=== PATIENT | male | born 1960 | race Caucasian/White ===

== ENCOUNTER 2024-03-18 07:40 | Inpatient (IN) ==
--- NOTE | 2024-03-18 08:09 | Emergency Department Note ---
History of Present Illness General Chief Complaint: Chest Pain Stated Complaint: abd and chest pain Time Seen by Provider: 03/18/24 07:58 History of Present Illness Provider Complaint: abdominal pain Onset (ago): 1 day(s) Pain Consistency: constant Location: diffuse Radiation: chest Severity: severe Maximum Pain Intensity: 9 Current Pain Intensity: 9 Quality: + stabbing and + sharp Relieved By: + nothing Exacerbated By: + nothing Context: no foreign travel, no possible food poisoning, no sick contacts, no recent antibiotic use, no recent surgery/procedure or no recent injury Associated Symptoms: + nausea, + vomiting and + chest pain; no diarrhea, no fever, no chills, no constipation, no dysuria, no hematemesis, no hematochezia, no melena, no hematuria, no syncope, no headache, no neck pain and no back pain Home Medications Medication Instructions Recorded Confirmed Type allopurinol 300 mg tablet 300 mg PO DAILY 09/26/20 03/18/24 History aspirin 81 mg tablet,delayed 81 mg PO DAILY 09/26/20 03/18/24 History release (Adult Low Dose Aspirin) cholecalciferol (vitamin D3) 50 50 mcg PO DAILY 09/26/20 03/18/24 History mcg (2,000 unit) capsule indomethacin 50 mg capsule 50 mg PO .COMPLEX PRN Other 09/26/20 03/18/24 History lisinopril 10 mg tablet 10 mg PO BID 09/26/20 03/18/24 History mecobalamin (vitamin B12) 1,000 1,000 mcg PO DAILY 09/26/20 03/18/24 History mcg chewable tablet metoprolol tartrate 25 mg tablet 25 mg PO BID 09/26/20 03/18/24 History nitroglycerin 0.4 mg sublingual 0.4 mg sublingual Q5M PRN Chest 09/26/20 03/18/24 History tablet Pain omega-3 fatty acids 1,000 mg 1,000 mg PO DAILY 09/26/20 03/18/24 History capsule (Fish Oil Concentrate) omeprazole 20 mg capsule,delayed 20 mg PO BID 09/26/20 03/18/24 History release methotrexate sodium 2.5 mg tablet 17.5 mg PO .weekly 06/17/22 03/18/24 History ezetimibe 10 mg tablet (Zetia) 10 mg PO DAILY #90 tabs 03/15/23 03/18/24 Rx gabapentin 600 mg tablet 600 mg PO .COMPLEX 07/23/23 03/18/24 History rosuvastatin 40 mg tablet (Crestor) 40 mg PO DAILY #90 tabs 08/07/23 03/18/24 Rx clopidogrel 75 mg tablet (Plavix) 75 mg PO DAILY #90 tabs 10/27/23 03/18/24 Rx empagliflozin 10 mg tablet 10 mg PO DAILY 02/04/24 03/18/24 History (Jardiance) folic acid 1 mg tablet 1 mg PO DAILY 03/18/24 03/18/24 History hydrochlorothiazide 25 mg tablet 25 mg PO DAILY 03/18/24 03/18/24 History prednisone 1 mg tablet 4 mg PO DAILY PRN Other 03/18/24 03/18/24 History semaglutide 3 mg tablet (Rybelsus) 3 mg PO DAILY 03/18/24 03/18/24 History Allergies Allergy/AdvReac Type Severity Reaction Status Date / Time No Known Allergies Allergy Verified 02/04/24 15:35 Past Med/Surg History Problem List (Updated 03/18/24 @ 14:07 by Gutierrez Dale MD) Elevated liver transaminase level Diabetes Acute pancreatitis (Acute) Diabetic neuropathy Myocardial infarct Impaired fasting glucose GERD (gastroesophageal reflux disease) Hyperlipidemia Hypertension CAD (coronary artery disease) S/P coronary artery stent placement Gout, chronic Morbid obesity Medical History Heart attack Gout Surgical History History of intravascular stent placement Social History Smoking Status: Never smoker Hx Alcohol Use: Yes Preferred Language: [place] Communication Ability: Effective Visual Impairment: No Limitations Hearing Ability: Normal Beliefs That Will Affect Care: None marital status: Current Living Situation: Spouse current occupational status: employed Feels Safe at Home: Yes Physical Exam 2 Vital Signs: Vital Signs - 24 hr 03/18/24 07:40 03/18/24 07:48 03/18/24 07:52 Temperature 37.0 C Temperature Source Oral Pulse Rate 79 Pulse Rate [Finger ] 77 Pulse Rate from Sp O2 Sensor Pulse Rhythm Regular Pulse Rhythm [Fing er] Regular Pulse Strength Normal Pulse Strength [Fi nger] Normal Respiratory Rate 18 18 Respiratory Effort / Characteristics Non-Labored Non-Labored Respiratory Depth Normal Normal Respiratory Patter n Regular Regular Blood Pressure 143/97 H Blood Pressure [Le ft Arm] 143/97 H Blood Pressure Dor[place]a n 112 Blood Pressure [place] n [Left Arm] 112 Blood Pressure Pos ition Lying Blood Pressure Pos ition [Left Arm] Lying Pulse Oximetry 97 95 Oxygen Delivery Me thod Room Air Room Air Room Air Sepsis Recent Feve r Within 48 Hours No Sepsis New/Unexpla ined Change in Men chilango Status N/A Sepsis Action Take n by Nursing No Action Required 03/18/24 08:00 03/18/24 08:04 03/18/24 08:06 Temperature Temperature Source Pulse Rate 80 78 Pulse Rate [Finger ] Pulse Rate from Sp O2 Sensor 77 Pulse Rhythm Regular Pulse Rhythm [Fing er] Pulse Strength Pulse Strength [Fi nger] Respiratory Rate 18 12 Respiratory Effort / Characteristics Respiratory Depth Respiratory Patter n Blood Pressure 150/93 H Blood Pressure [Le ft Arm] Blood Pressure [place] n 114 Blood Pressure [place] n [Left Arm] Blood Pressure Pos ition Blood Pressure Pos ition [Left Arm] Pulse Oximetry 92 95 Oxygen Delivery Me thod Room Air Sepsis Recent Feve r Within 48 Hours Sepsis New/Unexpla ined Change in Men chilango Status Sepsis Action Take n by Nursing 03/18/24 08:14 03/18/24 09:48 03/18/24 10:00 Temperature Temperature Source Pulse Rate 75 77 Pulse Rate [Finger ] 77 Pulse Rate from Sp O2 Sensor 76 Pulse Rhythm Pulse Rhythm [Fing er] Regular Pulse Strength Pulse Strength [Fi nger] Normal Respiratory Rate 16 18 Respiratory Effort / Characteristics Non-Labored Respiratory Depth Normal Respiratory Patter n Regular Blood Pressure Blood Pressure [Le ft Arm] 155/98 H Blood Pressure [place] n Blood Pressure [place] n [Left Arm] 117 Blood Pressure Pos ition Blood Pressure Pos ition [Left Arm] Lying Pulse Oximetry 91 93 Oxygen Delivery Me thod Room Air Sepsis Recent Feve r Within 48 Hours Sepsis New/Unexpla ined Change in Men chilango Status Sepsis Action Take n by Nursing 03/18/24 10:03 03/18/24 10:45 03/18/24 11:00 Temperature Temperature Source Pulse Rate 74 84 Pulse Rate [Finger ] 88 Pulse Rate from Sp O2 Sensor 76 84 Pulse Rhythm Pulse Rhythm [Fing er] Regular Pulse Strength Pulse Strength [Fi nger] Normal Respiratory Rate 16 15 18 Respiratory Effort / Characteristics Non-Labored Respiratory Depth Normal Respiratory Patter n Regular Blood Pressure Blood Pressure [Le ft Arm] 133/89 Blood Pressure [place] n Blood Pressure [place] n [Left Arm] 103 Blood Pressure Pos ition Blood Pressure Pos ition [Left Arm] Lying Pulse Oximetry 91 92 99 Oxygen Delivery Me thod Room Air Sepsis Recent Feve r Within 48 Hours Sepsis New/Unexpla ined Change in Men chilango Status Sepsis Action Take n by Nursing 03/18/24 11:03 03/18/24 11:36 Temperature Temperature Source Pulse Rate 96 H 87 Pulse Rate [Finger ] Pulse Rate from Sp O2 Sensor 93 H 88 Pulse Rhythm Pulse Rhythm [Fing er] Pulse Strength Pulse Strength [Fi nger] Respiratory Rate 17 15 Respiratory Effort / Characteristics Respiratory Depth Respiratory Patter n Blood Pressure Blood Pressure [Le ft Arm] Blood Pressure [place] n Blood Pressure [place] n [Left Arm] Blood Pressure Pos ition Blood Pressure Pos ition [Left Arm] Pulse Oximetry 94 96 Oxygen Delivery Me thod Sepsis Recent Feve r Within 48 Hours Sepsis New/Unexpla ined Change in Men chilango Status Sepsis Action Take n by Nursing Physical Exam: Physical Exam GENERAL: She is oriented to person, place, and time. She appears well-developed and well-nourished. She does not appear distressed. HENT: Exam performed. -Head: Normocephalic and atraumatic. -Right Ear: External ear normal. No mastoid erythema -Left Ear: External ear normal. No mastoid erythema -Mouth/Throat: The oropharynx is clear and moist. No trismus in the jaw. No dental abscesses or uvula swelling. No oropharyngeal exudate or tonsillar abscesses. EYES: Conjunctivae and EOM are normal.Right eye exhibits no discharge. Left eye exhibits no discharge. No scleral icterus. NECK: Normal range of motion. Neck supple. No JVD present. No tracheal deviation and normal range of motion present. CV: Normal rate, regular rhythm, normal heart sounds and intact distal pulses. There is no peripheral edema. Palpable radial pulses bue. PULM/CHEST: Effort normal and breath sounds normal. No respiratory distress. No stridor. She has no wheezes. She has no rales. -Chest Wall: She exhibits no tenderness. ABD: The abdomen is soft. Bowel sounds are normal. She has no distension. No mass is present. There is diffuse tenderness to palpation. There is no rebound, no guarding. MUSC/SKEL: Normal range of motion. There is no peripheral edema, tenderness or deformity. NEURO: Motor and sensation grossly intact. SKIN: Skin is warm and dry. She is not diaphoretic. PSYCH: She has a normal mood and affect. Behavior is normal. Judgment and thought content normal. Course Course 0758: The patient was evaluated in room A10. A complete history and physical exam was performed Cardiac monitoring: An order was placed for continuous cardiac monitoring. The monitor shows a rate of 70 with sinus rhythm interpreted by hi 1115: Vital signs stable. Labs are significant for white blood cell count of 12.22 hemoglobin 16.8. D-dimer of 860. CT of the chest negative for PE. Total bilirubin 1.4 direct bilirubin 0.5 AST 379 ALT 312. Triglycerides 168. Lipase 1082. CT of the abdomen pelvis showed pancreatitis cholelithiasis without cholecystitis. [facility] be [facility] team for pancreatitis Dr. Schwartz made aware. Administered Medications Hydromorphone HCl (Hydromorphone Inj 0.5 Mg/0.5 Ml Syr) 0.5 mg IV Q2H PRN PRN Reason: Moderate Pain (4,5,6) on NRS Stop: 04/01/24 11:40 Last Admin: 03/18/24 12:55 Dose: 0.5 mg Documented By: MARCELO Lactated Ringer's (Lr) 1,000 mls @ 150 mls/hr IV .Q6H40M DELORIS Stop: 03/19/24 15:09 Last Admin: 03/18/24 12:57 Dose: 150 mls/hr Documented By: MARCELO Acetaminophen (Ofirmev) 1,000 mg in 100 mls @ 400 mls/hr IV Q8H PRN PRN Reason: Fever/Mild Pain (Pain 1,2,3) Stop: 03/21/24 11:40 Last Infusion: 03/18/24 12:10 Dose: Infused Documented By: Admin: 03/18/24 11:51 Dose: 400 mls/hr Documented By: MARCELO Discontinued Medications Sodium Chloride (Nss) 1,000 mls @ 999 mls/hr IV .Q1H1M ONE Stop: 03/18/24 09:03 Last Infusion: 03/18/24 09:16 Dose: Infused Documented By: Admin: 03/18/24 08:14 Dose: 999 mls/hr Documented By: MARCELO Sodium Chloride (Nss) 1,000 mls @ 125 mls/hr IV .Q8H DELORIS Stop: 04/17/24 11:29 Last Admin: 03/18/24 11:49 Dose: Not Given Documented By: MARCELO Ioversol (Optiray 320 150ml) 120 ml IV ONCE ONE Stop: 03/18/24 09:38 Last Admin: 03/18/24 09:38 Dose: 120 ml Documented By: RAN Lorazepam (Lorazepam 1 Mg/1 Ml Syr Ed Inj Use) 0.5 mg IV NOW STA Stop: 03/18/24 11:45 Last Admin: 03/18/24 11:48 Dose: 0.5 mg Documented By: MARCELO Metoprolol Tartrate (Metoprolol Tartrate 25 Mg Tab) 25 mg PO NOW ONE Stop: 03/18/24 11:28 Last Admin: 03/18/24 11:43 Dose: Not Given Documented By: MARCELO Morphine Sulfate (Morphine Sulfate 4 Mg/Ml 1 Ml Carp\Vial) 4 mg IV NOW STA Stop: 03/18/24 08:04 Last Admin: 03/18/24 08:18 Dose: 4 mg Documented By: MARCELO Ondansetron HCl (Ondansetron Inj 2 Mg/Ml 2 Ml Vial) 4 mg IV NOW STA Stop: 03/18/24 08:04 Last Admin: 03/18/24 08:16 Dose: 4 mg Documented By: MARCELO Medical Decision Making Laboratory Data Attestation: I reviewed the patient's lab results. 03/18/24 07:58 03/18/24 07:58 Lab Results 03/18/24 Range/Units 07:58 WBC 12.22 H (4.8-10.8) K/ul RBC 5.38 (4.70-6.10) M/uL Hgb 16.8 (14.0-18.0) g/dl Hct 46.9 (42.0-52.0) % MCV 87.2 (80.0-100.0) fL MCH 31.2 (25.0-34.0) pg MCHC 35.8 (32.0-36.0) g/dL RDW Std Deviation 40.6 (36.4-46.3) fL RDW Coeff of Stuart 13.2 (11.5-14.5) % Plt Count 203 (130-400) K/uL MPV 9.2 L (9.4-12.4) fL Immature Gran % (Auto) 0.3 % Neut % (Auto) 86.3 % Lymph % (Auto) 7.5 % [place] % (Auto) 5.6 % Eos % (Auto) 0.1 % Baso % (Auto) 0.2 % Neut # (Auto) 10.54 H (1.40-6.50) K/uL Lymph # (Auto) 0.92 L (1.20-3.40) K/uL [place] # (Auto) 0.69 H (0.11-0.59) K/uL Eos # (Auto) 0.01 (0.00-0.50) K/uL Baso # (Auto) 0.02 (0.00-0.20) K/uL Immature Gran # (Auto) 0.04 (0.01-0.20) K/uL PT 11.4 (9.0-12.0) Seconds INR 1.1 (0.9-1.1) APTT 24 (21-31) Seconds PTT Ratio 0.9 D-Dimer 860 H* (0-500) ug/L FEU Sodium 136 (136-145) mmol/L Potassium 3.6 (3.5-5.1) mmol/L Chloride 99 (98-107) mmol/L Carbon Dioxide 27 (21-32) mmol/L Anion Gap 10 (3-11) BUN 14 (6-23) mg/dl Creatinine 0.89 (0.6-1.4) mg/dl Est Cr Clr Drug Dosing 108.1 ml/min Est GFR ( Amer) 107.0 ml/min Est GFR (Non-Af Amer) 92.3 ml/min BUN/Creatinine Ratio 15.7 (10-20) Glucose 177 H (70-99(Fasting)) mg/dl Calcium 8.8 (8.6-10.3) mg/dl Total Bilirubin 1.4 H (0.2-1.0) mg/dl Direct Bilirubin 0.5 H (0-0.2) mg/dl AST 379 H (13-39) U/L ALT 312 H (7-52) U/L Alkaline Phosphatase 96 (34-104) U/L Troponin I High Sens 6.9 (0-20) pg/ml Total Protein 6.9 (6.0-8.3) gm/dl Albumin 4.0 (3.4-5.0) gm/dl Triglycerides 168 H (0-150) mg/dl Lipase 1082 H (11-82) U/L Imaging Data Radiologist's Impression: CT ANGIOGRAM OF THE CHEST; CT SCAN OF THE ABDOMEN AND PELVIS WITH IV CONTRAST CLINICAL HISTORY: Atypical chest pain. Upper abdominal pain. Elevated d-dimer. Vomiting. COMPARISON STUDY: Chest CT dated 05/07/2023. TECHNIQUE: Following the IV administration of 120 of Optiray 320, CT angiogram of the chest is performed from the upper abdomen to the thoracic inlet utilizing the pulmonary embolus protocol. Images are reviewed in the axial, sagittal, coronal planes. 3-D MIPS images are created and assessed. Subsequently, CT scan of the abdomen and pelvis was performed from the lung bases to the proximal femora. Images are reviewed in the axial, sagittal, and coronal planes. IV contrast was administered without complication. A dose lowering technique was utilized adhering to the principles of ALARA. CT DOSE: 2480.54 mGy.cm FINDINGS: CHEST: Thyroid: Imaged portions of the thyroid gland are normal in size and attenuation. Thoracic aorta: The thoracic aorta is normal in caliber and demonstrates standard 3-vessel arch anatomy. No dissection is seen. Pulmonary vasculature: The pulmonary trunk is normal in caliber. There are no filling defects identified in the main, lobar, or segmental pulmonary arteries to indicate pulmonary embolus. Heart: The heart is normal in size and without pericardial effusion. The coronary arteries are densely calcified.. Lungs and pleural spaces: There is no airspace consolidation or pleural effusion. Dependent atelectasis is noted at the lung bases. The trachea and central airways are clear. Mediastinum: There is no mediastinal lymphadenopathy. Tiki: Clear. Axillae: There is no axillary lymphadenopathy. Bony thorax: No lytic or blastic lesions are identified. Postsurgical change is noted in the right shoulder. ABDOMEN AND PELVIS: Liver: The contrast-enhanced liver is normal in size, contour, and attenuation. There is no intrahepatic biliary ductal dilatation. The hepatic veins and portal veins are patent. Gallbladder: There are calcified gallstones with no CT evidence of acute cholecystitis. Spleen: Normal in size and attenuation. Pancreas: The pancreas is edematous with peripancreatic inflammation and fluid. The duct is normal in caliber, and the gland enhances throughout. No organized peripancreatic fluid collection is identified. The splenic vein is patent. Adrenal glands: Unremarkable. Kidneys: The contrast enhanced kidneys demonstrate mild cortical atrophy and are without hydronephrosis. The kidneys enhance symmetrically. A retroaortic left renal vein is incidentally noted. There are at least 2 nonobstructing right renal calculi which measure up to 3 mm. A 14 mm indeterminant calcified cortical lesion is seen in the interpolar left kidney on image #202. Abdominal vasculature: The abdominal aorta is normal in course and caliber noting mild atherosclerotic calcification. Bowel: There is no bowel obstruction. The appendix is well-visualized and normal. Peritoneum: No intraperitoneal free air is seen. There is trace free fluid in the right paracolic gutter and pelvis. There is a fat-containing umbilical hernia. Lymphadenopathy: None. Pelvic viscera: The bladder, prostate, and seminal vesicles are normal as visualized. Skeletal structures: There is mild lumbosacral spondylosis. No lytic or blastic lesions are seen. IMPRESSION: 1. There is no evidence of pulmonary embolus in the main, lobar, or segmental pulmonary arteries. 2. There is no airspace consolidation or pleural effusion. 3. Advanced coronary artery atherosclerosis. Consider nonemergent follow-up with cardiology. 4. Acute pancreatitis. 5. The pancreas enhances throughout and there is no organized peripancreatic fluid collection. 6. Cholelithiasis without CT evidence of acute cholecystitis. 7. Trace ascites. 8. There is a 14 mm indeterminate calcified cortical lesion in the anterior interpolar left kidney. This is not highly suspicious, and a follow-up renal protocol CT scan is recommended in 6 months time for reassessment. 9. Additional findings as above. ACT 112: Positive. There are findings on this exam that require communication between the performing entity and the patient following Patient Test Result Information Act ([place] Act 112) guidelines. Electronically signed by: Arslan Matta M.D. 03/18/2024 10:16 AM Dictated: 03/18/24 1000 Transcribed: 03/18/24 1000 ECG Data Attestation: I personally reviewed and interpreted this ECG as follows: Indication: abdominal pain Rate (beats per minute): 72 Rhythm: normal sinus Findings: no ST depression, no ST elevation or no prolonged QT [facility] Narrative 0758: The patient was evaluated in room A10. A complete history and physical exam was performed Cardiac monitoring: An order was placed for continuous cardiac monitoring. The monitor shows a rate of 70 with sinus rhythm interpreted by me 1115: Vital signs stable. Labs are significant for white blood cell count of 12.22 hemoglobin 16.8. D-dimer of 860. CT of the chest negative for PE. Total bilirubin 1.4 direct bilirubin 0.5 AST 379 ALT 312. Triglycerides 168. Lipase 1082. CT of the abdomen pelvis showed pancreatitis cholelithiasis without cholecystitis. Patient will be admitted to the [facility] hospitalist team for pancreatitis Dr. Schwartz made aware. Impression & Plan Acute pancreatitis Discharge Plan Visit Data Chief Complaint: Chest Pain Stated Complaint: abd and chest pain ED Provider: Gutierrez Dale Discharge Problem: Acute pancreatitis Patient Disposition: Admitted As Inpatient Forms Stand Alone Forms: My [facility] Prescriptions Prescriptions: No Action ezetimibe [Zetia] 10 mg tablet 10 mg PO DAILY Qty: 90 11RF rosuvastatin [Crestor] 40 mg tablet 40 mg PO DAILY Qty: 90 3RF clopidogrel [Plavix] 75 mg tablet 75 mg PO DAILY Qty: 90 3RF Jardiance 10 mg tablet 10 mg PO DAILY omega-3 fatty acids [Fish Oil Concentrate] 1,000 mg capsule 1,000 mg PO DAILY mecobalamin (vitamin B12) 1,000 mcg tablet,chewable 1,000 mcg PO DAILY cholecalciferol (vitamin D3) 50 mcg (2,000 unit) capsule 50 mcg PO DAILY aspirin [Adult Low Dose Aspirin] 81 mg tablet,delayed release (DR/EC) 81 mg PO DAILY nitroglycerin 0.4 mg tablet, sublingual 0.4 mg sublingual Q5M PRN (Reason: Chest Pain) Rx Instructions: do not exceed 3 doses per episode metoprolol tartrate 25 mg tablet 25 mg PO BID lisinopril 10 mg tablet 10 mg PO BID omeprazole 20 mg capsule,delayed release(DR/EC) 20 mg PO BID indomethacin 50 mg capsule 50 mg PO .COMPLEX PRN (Reason: Other) Rx Instructions: 50 mg PO Q6-8hrs PRN; administer with food or milk allopurinol 300 mg tablet 300 mg PO DAILY methotrexate sodium 2.5 mg tablet 17.5 mg PO .weekly Rx Instructions: sundays gabapentin 600 mg tablet 600 mg PO .COMPLEX Rx Instructions: 2 tablets in the am 2 tablets in the pm prednisone 1 mg tablet 4 mg PO DAILY PRN (Reason: Other) folic acid 1 mg tablet 1 mg PO DAILY hydrochlorothiazide 25 mg tablet 25 mg PO DAILY Rybelsus 3 mg tablet 3 mg PO DAILY Referrals Referrals: Linda Rojas PA-C [Primary Care Provider] - Discharge Problem: Acute pancreatitis Qualifiers: Pancreatitis type: unspecified pancreatitis type Acute pancreatitis complication: unspecified Qualified Code(s): K85.90 - Acute pancreatitis without necrosis or infection, unspecified
[2024-03-18] MEDS: SODIUM CHLORIDE 0.9% 1,000 ML IV ONE (08:14)
[2024-03-18] MEDS: ONDANSETRON INJ 2 MG/ML 2 ML VIAL IV STA (08:16)
[2024-03-18] MEDS: MoRPHine SULFATE 4 MG/ML 1 ML CARP\\VIAL IV STA (08:18)
[2024-03-18 08:23] LABS: Basophils # (auto) 0.02 K/uL (0.00-0.20); Basophils % (auto) 0.2 %; Eosinophils # (auto) 0.01 K/uL (0.00-0.50); Eosinophils % (auto) 0.1 %; Hematocrit (blood only) 46.9 % (42.0-52.0); Hemoglobin 16.8 g/dl (14.0-18.0); Immature Granulocytes # (auto) 0.04 K/uL (0.01-0.20); Immature Granulocytes % (auto) 0.3 %; Lymphocytes # (auto) 0.92 K/uL (1.20-3.40); Lymphocytes % (auto) 7.5 %; Mean Corpuscular Hemoglobin 31.2 pg (25.0-34.0); Mean Corpuscular Hgb Conc 35.8 g/dL (32.0-36.0); Mean Corpuscular Volume 87.2 fL (80.0-100.0); Mean Platelet Volume 9.2 fL (9.4-12.4); Monocytes # (auto) 0.69 K/uL (0.11-0.59); Monocytes % (auto) 5.6 %; Neutrophils # (auto) 10.54 K/uL (1.40-6.50); Neutrophils % (auto) 86.3 %; Platelet Count 203 K/uL (130-400); RDW Coefficient of Variation 13.2 % (11.5-14.5); RDW Standard Deviation 40.6 fL (36.4-46.3); Red Blood Count 5.38 M/uL (4.70-6.10); White Blood Count 12.22 K/ul (4.8-10.8)
[2024-03-18 08:31] LABS: BUN Creatinine Ratio 15.7 (10-20); Calcium 8.8 mg/dl (8.6-10.3); Creatinine Clr Calc Pharmacy 108.1 ml/min; Est GFR (Non-African American) 92.3 ml/min; Potassium 3.6 mmol/L (3.5-5.1)
[2024-03-18 08:37] LABS: Troponin I High Sensitivity 6.9 pg/ml (0-20)
[2024-03-18 08:57] LABS: Bilirubin Direct 0.5 mg/dl (0-0.2); Bilirubin,Total 1.4 mg/dl (0.2-1.0); Total Protein 6.9 gm/dl (6.0-8.3)
[2024-03-18 08:59] LABS: INR 1.1 (0.9-1.1); Partial Thromboplastin Ratio 0.9; Partial Thromboplastin Time 24 Seconds (21-31); Prothrombin Time 11.4 Seconds (9.0-12.0)
[2024-03-18 09:27] LABS: D Dimer 860 ug/L FEU (0-500)
[2024-03-18] MEDS: OPTIRAY 320 150ml IV ONE (09:38)
--- NOTE | 2024-03-18 10:19 | CT Scan Report ---
CT ANGIOGRAM OF THE CHEST; CT SCAN OF THE ABDOMEN AND PELVIS WITH IV CONTRAST CLINICAL HISTORY: Atypical chest pain. Upper abdominal pain. Elevated d-dimer. Vomiting. COMPARISON STUDY: Chest CT dated 05/07/2023. TECHNIQUE: Following the IV administration of 120 of Optiray 320, CT angiogram of the chest is perfor med from the upper abdomen to the thoracic inlet utilizing the pulmonary embolus protocol. Images are reviewed in the axial, sagittal, coronal planes. 3-D MIPS images are created and assessed. Subsequen tly, CT scan of the abdomen and pelvis was performed from the lung bases to the proximal femora. Imag es are reviewed in the axial, sagittal, and coronal planes. IV contrast was administered without comp lication. A dose lowering technique was utilized adhering to the principles of ALARA. CT DOSE: 2480.54 mGy.cm FINDINGS: CHEST: Thyroid: Imaged portions of the thyroid gland are normal in size and attenuation. Thoracic aorta: The thoracic aorta is normal in caliber and demonstrates standard 3-vessel arch anato my. No dissection is seen. Pulmonary vasculature: The pulmonary trunk is normal in caliber. There are no filling defects identif ied in the main, lobar, or segmental pulmonary arteries to indicate pulmonary embolus. Heart: The heart is normal in size and without pericardial effusion. The coronary arteries are densel y calcified.. Lungs and pleural spaces: There is no airspace consolidation or pleural effusion. Dependent atelectas is is noted at the lung bases. The trachea and central airways are clear. Mediastinum: There is no mediastinal lymphadenopathy. Tiki: Clear. Axillae: There is no axillary lymphadenopathy. Bony thorax: No lytic or blastic lesions are identified. Postsurgical change is noted in the right sh oulder. ABDOMEN AND PELVIS: Liver: The contrast-enhanced liver is normal in size, contour, and attenuation. There is no intrahepa tic biliary ductal dilatation. The hepatic veins and portal veins are patent. Gallbladder: There are calcified gallstones with no CT evidence of acute cholecystitis. Spleen: Normal in size and attenuation. Pancreas: The pancreas is edematous with peripancreatic inflammation and fluid. The duct is normal in caliber, and the gland enhances throughout. No organized peripancreatic fluid collection is identifi ed. The splenic vein is patent. Adrenal glands: Unremarkable. Kidneys: The contrast enhanced kidneys demonstrate mild cortical atrophy and are without hydronephros is. The kidneys enhance symmetrically. A retroaortic left renal vein is incidentally noted. There are at least 2 nonobstructing right renal calculi which measure up to 3 mm. A 14 mm indeterminant calcif ied cortical lesion is seen in the interpolar left kidney on image #202. Abdominal vasculature: The abdominal aorta is normal in course and caliber noting mild atheroscleroti c calcification. Bowel: There is no bowel obstruction. The appendix is well-visualized and normal. Peritoneum: No intraperitoneal free air is seen. There is trace free fluid in the right paracolic gut ter and pelvis. There is a fat-containing umbilical hernia. Lymphadenopathy: None. Pelvic viscera: The bladder, prostate, and seminal vesicles are normal as visualized. Skeletal structures: There is mild lumbosacral spondylosis. No lytic or blastic lesions are seen. IMPRESSION: 1. There is no evidence of pulmonary embolus in the main, lobar, or segmental pulmonary arteries. 2. There is no airspace consolidation or pleural effusion. 3. Advanced coronary artery atherosclerosis. Consider nonemergent follow-up with cardiology. 4. Acute pancreatitis. 5. The pancreas enhances throughout and there is no organized peripancreatic fluid collection. 6. Cholelithiasis without CT evidence of acute cholecystitis. 7. Trace ascites. 8. There is a 14 mm indeterminate calcified cortical lesion in the anterior interpolar left kidney. T his is not highly suspicious, and a follow-up renal protocol CT scan is recommended in 6 months time for reassessment. 9. Additional findings as above. ACT 112: Positive. There are findings on this exam that require communication between the performing entity and the patient following Patient Test Result Information Act ([place] Act 112) guidelines. Electronically signed by: Arslan Matta M.D. 03/18/2024 10:16 AM
--- NOTE | 2024-03-18 10:56 | History & Physical Report ---
Date of Service March 18, 2024 Assessment & Plan (1) Acute pancreatitis: Plan: Acute onset of epigastric/chest pain the evening of 6/7 Vomiting x 2 episodes Mild leukocytosis at 12.22 with a neutrophil predominance; afebrile Elevated D-dimer at 860; no pulmonary embolism on CTA Elevated transaminases Lipase elevated at 1082 Triglycerides ordered, pending Chest CTA revealed acute pancreatitis While patient does endorse mild alcohol use, will order MRCP to rule out ch oledocholithiasis Patient confirms he has not had any food/fluids/ice chips or am p.o. medications 4h prior to MRCP Strict n.p.o. for now LR at 150 mL/hr x 5 Acetaminophen 1000 mg IV q8h as needed for pain 1-3 Dilaudid 0.5-1.0 mg IV q2h as needed for breakthrough pain Zofran as needed for nausea and vomiting; QTc 433 A.m. CBC, CMP, mag (2) Diabetes: Plan: Last A1c at 7.8% on 01/05/2024 Glucose 177 on admission Hold Rybelsus, empagliflozin SSI; with target BSG range 110-140mg/dL, CF 40, carb ratio 13 BSG q4h while NPO BSG ACHS after diet is advanced Adjust regimen as needed AM A1c (3) Elevated liver transaminase level: Plan: Total bili 1.4, AST 379, ALT 312 on arrival MRCP Follow a.m. CMP's (4) CAD (coronary artery disease): Plan: S/p coronary artery stent Continue aspirin/Plavix (5) GERD (gastroesophageal reflux disease): Plan: Continue omeprazole or pantoprazole equivalent (6) Gout, chronic: Plan: Continue allopurinol (7) Hypertension: Plan: Continue metoprolol, lisinopril, HCTZ (8) Hyperlipidemia: Plan: Continue rosuvastatin (9) S/P coronary artery stent placement: Plan Disposition: Admit to [facility] Telemetry Full code Strict n.p.o. for now, then advance to clear liquid diet in 24-48 hours VTE PPx: Lovenox 40mg SQ q24h History of Present Illness Chief Complaint: Abdominal/chest pain Primary Care Provider: REDD Phan is a 63-year-old male with PMH of gout, CAD s/p stent placement, HTN, HLD, GERD, NC, and diabetic neuropathy. He presented for acute onset of generalized abdominal and chest pain on the evening of 03/17. He also reports 2 episodes of vomiting last night. Pain is located generalized throughout the upper and lower the abdomen, with radiation to the lower back. He describes as a sharp stabbing pain in his stomach. Exacerbated with movements. The pain came on suddenly around 6 PM the evening of 03/17. He rates the pain 8/10 after receiving pain medicine in the ED. He was not doing anything when the pain came on; did not eat anything the night prior. He did not taken any pain medications at home prior to coming in. No morning medications; no recent change in medicine except for switching from metformin to Rybelsus. He also notes intermittent chest pain last night with movements and at rest. He is chest pain-free at time of admission. No recent change in diet. No history of pancreatitis. He does note a history of gallstones, which she reports were seen on the CT 1 year ago. No prior issues with his gallbladder. He has had past similar episodes of generalized abdominal pain with radiation to the back, but never to this extent. Patient does drink alcohol; 6 beers per week; however he reports he has been cutting back recently. He denies history of heavy alcohol use in his past. Last alcoholic drink was 1 beer on the evening of 03/17. Patient is a former tobacco snuff chewer, but quit 7 years ago after his NC. He denies any recent tobacco use, or recreational drug use. No sick contacts. Patient is mildly hypertensive at 155/98 at time of admission; vitals otherwise stable. ED course: NSS 1000 mL IV Zofran 4 mg IV Morphine sulfate 4 mg IV ROS: Patient endorses deep breaths hurt stomach, sharp/generalized abdominal pain with rad to lower back, nausea, or vomiting x 2 last night. Patient denies fever, chills, night-sweats, dizziness, lightheadedness/dizziness, EDWARDS, chest pain, chest palpitations, SOB, cough, hemoptysis, diarrhea, change in urinary/bowel habits, blood in urine/stool, dysuria, or numbness/tingling in the arms or legs. Allergies Allergy/AdvReac Type Severity Reaction Status Date / Time No Known Allergies Allergy Verified 02/04/24 15:35 Home Medications Medication Instructions Recorded Confirmed Type allopurinol 300 mg tablet 300 mg PO DAILY 09/26/20 03/18/24 History aspirin 81 mg tablet,delayed 81 mg PO DAILY 09/26/20 03/18/24 History release (Adult Low Dose Aspirin) cholecalciferol (vitamin D3) 50 50 mcg PO DAILY 09/26/20 03/18/24 History mcg (2,000 unit) capsule indomethacin 50 mg capsule 50 mg PO .COMPLEX PRN Other 09/26/20 03/18/24 History lisinopril 10 mg tablet 10 mg PO BID 09/26/20 03/18/24 History mecobalamin (vitamin B12) 1,000 1,000 mcg PO DAILY 09/26/20 03/18/24 History mcg chewable tablet metoprolol tartrate 25 mg tablet 25 mg PO BID 09/26/20 03/18/24 History nitroglycerin 0.4 mg sublingual 0.4 mg sublingual Q5M PRN Chest 09/26/20 03/18/24 History tablet Pain omega-3 fatty acids 1,000 mg 1,000 mg PO DAILY 09/26/20 03/18/24 History capsule (Fish Oil Concentrate) omeprazole 20 mg capsule,delayed 20 mg PO BID 09/26/20 03/18/24 History release methotrexate sodium 2.5 mg tablet 17.5 mg PO .weekly 06/17/22 03/18/24 History ezetimibe 10 mg tablet (Zetia) 10 mg PO DAILY #90 tabs 03/15/23 03/18/24 Rx gabapentin 600 mg tablet 600 mg PO .COMPLEX 07/23/23 03/18/24 History rosuvastatin 40 mg tablet (Crestor) 40 mg PO DAILY #90 tabs 08/07/23 03/18/24 Rx clopidogrel 75 mg tablet (Plavix) 75 mg PO DAILY #90 tabs 10/27/23 03/18/24 Rx empagliflozin 10 mg tablet 10 mg PO DAILY 02/04/24 03/18/24 History (Jardiance) folic acid 1 mg tablet 1 mg PO DAILY 03/18/24 03/18/24 History hydrochlorothiazide 25 mg tablet 25 mg PO DAILY 03/18/24 03/18/24 History prednisone 1 mg tablet 4 mg PO DAILY PRN Other 03/18/24 03/18/24 History semaglutide 3 mg tablet (Rybelsus) 3 mg PO DAILY 03/18/24 03/18/24 History Past Med/Surg History Problem List (Updated 03/18/24 @ 14:07 by Gutierrez Dale MD) Elevated liver transaminase level Diabetes Acute pancreatitis (Acute) Diabetic neuropathy Myocardial infarct Impaired fasting glucose GERD (gastroesophageal reflux disease) Hyperlipidemia Hypertension CAD (coronary artery disease) S/P coronary artery stent placement Gout, chronic Morbid obesity Medical History Heart attack Gout Surgical History History of intravascular stent placement Social History Smoking Status: Never smoker Hx Alcohol Use: Yes Preferred Language: Tuvaluan Communication Ability: Effective Visual Impairment: No Limitations Hearing Ability: Normal Beliefs That Will Affect Care: None marital status: Current Living Situation: Spouse current occupational status: employed Feels Safe at Home: Yes Review of Systems Review of Systems: See HPI above Physical Exam Physical Exam: General: Moderate acute physical distress secondary to generalized abdominal pain; pleasant affect; non-toxic appearing; well-nourished; cooperative HEENT: normocephalic, atraumatic; no scleral icterus; PERRLA w/ EOMs intact; moist mucus membrane; vision and hearing grossly intact Neck: supple; no lymphadenopathy; trachea midline Skin: warm, dry without signs of tenting; no cyanosis; no rashes, bruising, lesions, or erythema noted CV: chest wall NTP; RRR; S1/S2 normal; no murmurs/rubs/gallops; pulses intact and symmetric at radial, DP, and PT Lungs: no acute respiratory distress; symmetrical chest wall expansion; clear breath sounds across all lung gil w/o adventitious sounds; no wheezing ABD: Soft; BS present; no rebound/guarding; moderate distention secondary to body habitus MSK: no tics or fasciculations; no edema noted in the LEs b/l, nonerythematous Neuro: A&Ox3; normal mood and affect; fluent speech; no focal deficits; sensati on grossly intact in the LEs b/l Results & Data Results & Data Vital Signs (Past 12 Hours) Vital Signs Temp Pulse Pulse Resp BP BP Pulse Ox 03/18/24 10:00 77 18 155/98 H 93 03/18/24 08:14 75 03/18/24 08:04 80 18 92 03/18/24 07:52 77 18 143/97 H 95 03/18/24 07:48 37.0 C 79 18 143/97 H 97 03/18/24 07:40 O2 Del Method 03/18/24 10:00 Room Air 03/18/24 08:14 03/18/24 08:04 Room Air 03/18/24 07:52 Room Air 03/18/24 07:48 Room Air 03/18/24 07:40 Room Air Laboratory Results Abnormal lab results 03/18/24 Range/Units 07:58 WBC 12.22 H (4.8-10.8) K/ul MPV 9.2 L (9.4-12.4) fL Neut # (Auto) 10.54 H (1.40-6.50) K/uL Lymph # (Auto) 0.92 L (1.20-3.40) K/uL Story # (Auto) 0.69 H (0.11-0.59) K/uL D-Dimer 860 H* (0-500) ug/L FEU Glucose 177 H (70-99(Fasting)) mg/dl Total Bilirubin 1.4 H (0.2-1.0) mg/dl Direct Bilirubin 0.5 H (0-0.2) mg/dl AST 379 H (13-39) U/L ALT 312 H (7-52) U/L Lipase 1082 H (11-82) U/L Diagnostic Findings Abdomen/Pelvis CT 03/18/24 08:04 CT ANGIOGRAM OF THE CHEST; CT SCAN OF THE ABDOMEN AND PELVIS WITH IV CONTRAST CLINICAL HISTORY: Atypical chest pain. Upper abdominal pain. Elevated d-dimer. Vomiting. COMPARISON STUDY: Chest CT dated 05/07/2023. TECHNIQUE: Following the IV administration of 120 of Optiray 320, CT angiogram of the chest is performed from the upper abdomen to the thoracic inlet utilizing the pulmonary embolus protocol. Images are reviewed in the axial, sagittal, coronal planes. 3-D MIPS images are created and assessed. Subsequently, CT scan of the abdomen and pelvis was performed from the lung bases to the proximal femora. Images are reviewed in the axial, sagittal, and coronal planes. IV contrast was administered without complication. A dose lowering technique was utilized adhering to the principles of ALARA. CT DOSE: 2480.54 mGy.cm FINDINGS: CHEST: Thyroid: Imaged portions of the thyroid gland are normal in size and attenuation. Thoracic aorta: The thoracic aorta is normal in caliber and demonstrates standard 3-vessel arch anatomy. No dissection is seen. Pulmonary vasculature: The pulmonary trunk is normal in caliber. There are no filling defects identified in the main, lobar, or segmental pulmonary arteries to indicate pulmonary embolus. Heart: The heart is normal in size and without pericardial effusion. The coronary arteries are densely calcified.. Lungs and pleural spaces: There is no airspace consolidation or pleural effusion. Dependent atelectasis is noted at the lung bases. The trachea and central airways are clear. Mediastinum: There is no mediastinal lymphadenopathy. Tiki: Clear. Axillae: There is no axillary lymphadenopathy. Bony thorax: No lytic or blastic lesions are identified. Postsurgical change is noted in the right shoulder. ABDOMEN AND PELVIS: Liver: The contrast-enhanced liver is normal in size, contour, and attenuation. There is no intrahepatic biliary ductal dilatation. The hepatic veins and portal veins are patent. Gallbladder: There are calcified gallstones with no CT evidence of acute cholecystitis. Spleen: Normal in size and attenuation. Pancreas: The pancreas is edematous with peripancreatic inflammation and fluid. The duct is normal in caliber, and the gland enhances throughout. No organized peripancreatic fluid collection is identified. The splenic vein is patent. Adrenal glands: Unremarkable. Kidneys: The contrast enhanced kidneys demonstrate mild cortical atrophy and are without hydronephrosis. The kidneys enhance symmetrically. A retroaortic left renal vein is incidentally noted. There are at least 2 nonobstructing right renal calculi which measure up to 3 mm. A 14 mm indeterminant calcified cortical lesion is seen in the interpolar left kidney on image #202. Abdominal vasculature: The abdominal aorta is normal in course and caliber noting mild atherosclerotic calcification. Bowel: There is no bowel obstruction. The appendix is well-visualized and normal. Peritoneum: No intraperitoneal free air is seen. There is trace free fluid in the right paracolic gutter and pelvis. There is a fat-containing umbilical hernia. Lymphadenopathy: None. Pelvic viscera: The bladder, prostate, and seminal vesicles are normal as visualized. Skeletal structures: There is mild lumbosacral spondylosis. No lytic or blastic lesions are seen. IMPRESSION: 1. There is no evidence of pulmonary embolus in the main, lobar, or segmental pulmonary arteries. 2. There is no airspace consolidation or pleural effusion. 3. Advanced coronary artery atherosclerosis. Consider nonemergent follow-up with cardiology. 4. Acute pancreatitis. 5. The pancreas enhances throughout and there is no organized peripancreatic fluid collection. 6. Cholelithiasis without CT evidence of acute cholecystitis. 7. Trace ascites. 8. There is a 14 mm indeterminate calcified cortical lesion in the anterior interpolar left kidney. This is not highly suspicious, and a follow-up renal protocol CT scan is recommended in 6 months time for reassessment. 9. Additional findings as above. ACT 112: Positive. There are findings on this exam that require communication between the performing entity and the patient following Patient Test Result Information Act ([place] Act 112) guidelines. Electronically signed by: Arslan Matta M.D. 03/18/2024 10:16 AM Chest CTA 03/18/24 09:30 CT ANGIOGRAM OF THE CHEST; CT SCAN OF THE ABDOMEN AND PELVIS WITH IV CONTRAST CLINICAL HISTORY: Atypical chest pain. Upper abdominal pain. Elevated d-dimer. Vomiting. COMPARISON STUDY: Chest CT dated 05/07/2023. TECHNIQUE: Following the IV administration of 120 of Optiray 320, CT angiogram of the chest is performed from the upper abdomen to the thoracic inlet utilizing the pulmonary embolus protocol. Images are reviewed in the axial, sagittal, coronal planes. 3-D MIPS images are created and assessed. Subsequently, CT scan of the abdomen and pelvis was performed from the lung bases to the proximal femora. Images are reviewed in the axial, sagittal, and coronal planes. IV contrast was administered without complication. A dose lowering technique was utilized adhering to the principles of ALARA. CT DOSE: 2480.54 mGy.cm FINDINGS: CHEST: Thyroid: Imaged portions of the thyroid gland are normal in size and attenuation. Thoracic aorta: The thoracic aorta is normal in caliber and demonstrates standard 3-vessel arch anatomy. No dissection is seen. Pulmonary vasculature: The pulmonary trunk is normal in caliber. There are no filling defects identified in the main, lobar, or segmental pulmonary arteries to indicate pulmonary embolus. Heart: The heart is normal in size and without pericardial effusion. The coronary arteries are densely calcified.. Lungs and pleural spaces: There is no airspace consolidation or pleural effusion. Dependent atelectasis is noted at the lung bases. The trachea and central airways are clear. Mediastinum: There is no mediastinal lymphadenopathy. Tiki: Clear. Axillae: There is no axillary lymphadenopathy. Bony thorax: No lytic or blastic lesions are identified. Postsurgical change is noted in the right shoulder. ABDOMEN AND PELVIS: Liver: The contrast-enhanced liver is normal in size, contour, and attenuation. There is no intrahepatic biliary ductal dilatation. The hepatic veins and portal veins are patent. Gallbladder: There are calcified gallstones with no CT evidence of acute cholecystitis. Spleen: Normal in size and attenuation. Pancreas: The pancreas is edematous with peripancreatic inflammation and fluid. The duct is normal in caliber, and the gland enhances throughout. No organized peripancreatic fluid collection is identified. The splenic vein is patent. Adrenal glands: Unremarkable. Kidneys: The contrast enhanced kidneys demonstrate mild cortical atrophy and are without hydronephrosis. The kidneys enhance symmetrically. A retroaortic left renal vein is incidentally noted. There are at least 2 nonobstructing right renal calculi which measure up to 3 mm. A 14 mm indeterminant calcified cortical lesion is seen in the interpolar left kidney on image #202. Abdominal vasculature: The abdominal aorta is normal in course and caliber noting mild atherosclerotic calcification. Bowel: There is no bowel obstruction. The appendix is well-visualized and normal. Peritoneum: No intraperitoneal free air is seen. There is trace free fluid in the right paracolic gutter and pelvis. There is a fat-containing umbilical hernia. Lymphadenopathy: None. Pelvic viscera: The bladder, prostate, and seminal vesicles are normal as visualized. Skeletal structures: There is mild lumbosacral spondylosis. No lytic or blastic lesions are seen. IMPRESSION: 1. There is no evidence of pulmonary embolus in the main, lobar, or segmental pulmonary arteries. 2. There is no airspace consolidation or pleural effusion. 3. Advanced coronary artery atherosclerosis. Consider nonemergent follow-up with cardiology. 4. Acute pancreatitis. 5. The pancreas enhances throughout and there is no organized peripancreatic fluid collection. 6. Cholelithiasis without CT evidence of acute cholecystitis. 7. Trace ascites. 8. There is a 14 mm indeterminate calcified cortical lesion in the anterior interpolar left kidney. This is not highly suspicious, and a follow-up renal protocol CT scan is recommended in 6 months time for reassessment. 9. Additional findings as above. ACT 112: Positive. There are findings on this exam that require communication between the performing entity and the patient following Patient Test Result Information Act ([place] Act 112) guidelines. Electronically signed by: Arslan Matta M.D. 03/18/2024 10:16 AM ECG Additional Comments: ECG revealed NSR at 72 bpm; QTc 433 Code Status & VTE Plan Code Status Full code VTE Prophylaxis Plan VTE Prophylaxis will be ordered: Yes Supervising Physician Co-Signing Physician Notes Patient seen and examined, chart reviewed, case discussed with Bharat Crandall PA-C and I agree with the assessment and plan as above except as otherwise noted Labs and images reviewed 63-year-old male with past medical history of daily beer use approximately 1/day who presents with 8/10 epigastric/abdominal pain over 24 hours with 2 episodes of nonbloody nonbilious vomiting. Decreased appetite. He has a mild leukocytosis, total bilirubin and transaminases are elevated. Lipase is elevated at 1082. CTA/P shows cholelithiasis without evidence of acute cholecystitis. Acute pancreatitis is seen no CBD dilation is seen. Patient reports he normally has 2 beers 3 times a week, although is actually been cutting down had 1 beer yesterday and had not had alcohol the day or so prior to that. With his cholelithiasis and transaminitis and obstructive LFT picture suspect gallstone pancreatitis with either a residual or passed stone is much more likely; will follow-up with MRCP r/o choledocholithiasis. Will defer right upper quadrant ultrasound prior to MRCP as this has a poor sensitivity for distal stones with bowel gas obstruction and have a moderate to high suspicion for potential gallstone pancreatitis. If obstructive stone is seen patient will require transfer for ERCP. No signs of acute cholecystitis at this time. At bedside patient has right upper quadrant and epigastric tenderness to palpation, and mild tenderness to palpation diffusely but without rebound/guarding. N.p.o., IV FM with LR, IV Tylenol, hydromorphone 0.5-1 mg for breakthrough for pain control. 1 mg Ativan p.o. pre-MRI due to claustrophobia. Agree with assessment and management above. PG Care Time/CCT Total # of Minutes Spent Total Time Spent with Patient: Total time spent is greater than 50% in coordination of care (as documented) at patient's floor/unit and/or counseling patient: Coding [place] [address] INT INP/OBS CARE 3/75MIN Patient Type Established History Comprehensive Exam Comprehensive Medical Decision Making High Complexity Diagnoses Acute pancreatitis K85.90 Diabetes E11.9 Elevated liver transaminase level R74.01 CAD (coronary artery disease) I25.10 GERD (gastroesophageal reflux disease) K21.9 Gout, chronic [id number] Hypertension I10 Hyperlipidemia E78.5 S/P coronary artery stent placement Z95.5
--- NOTE | 2024-03-18 11:10 | Electrocardiogram Report ---
Test Reason : Blood Pressure : / mmHG Vent. Rate : 072 BPM Atrial Rate : 072 BPM P-R Int : 176 ms QRS Dur : 088 ms QT Int : 396 ms P-R-T Axes : 022 021 018 degrees QTc Int : 433 ms Normal sinus rhythm Normal ECG No previous ECGs available Confirmed by Aashish Aparicio ([id number]) on 03/18/2024 11:09:32 AM Referred By: REFERRED SELF Confirmed By:Nehemiah Aparicio
[2024-03-18] MEDS ORDERED: LORazepam 0.5 MG in SYRINGE 0.25 ML IV STA (11:41)
[2024-03-18] MEDS: METOPROLOL TARTRATE 25 MG TAB PO ONE (11:43)
[2024-03-18] MEDS: LORazepam 1 MG/1 ML SYR ED Inj Use IV STA (11:48)
[2024-03-18] MEDS: SODIUM CHLORIDE 0.9% 1,000 ML IV SCH (11:49)
[2024-03-18] MEDS: ACETAMINOPHEN 1,000 MG/100 ML VIAL IV PRN (11:51)
[2024-03-18] MEDS: HYDROmorphone INJ 0.5 MG/0.5 ML SYR IV PRN (12:55)
[2024-03-18] MEDS: LACTATED RINGER'S 1,000 ML IV SCH (12:57)
--- NOTE | 2024-03-18 13:39 | Magnetic Resonance Report ---
MRCP CLINICAL HISTORY: Pancreatitis. COMPARISON STUDY: Abdominal CT dated 03/18/2024. TECHNIQUE: Abdominal MRCP is performed utilizing various T2-weighted sequences in the axial and coron al planes. IV contrast was not administered for this examination. 3-D reformats are created and asses sed. Diffusion-weighted imaging was utilized. FINDINGS: The gallbladder is distended and contains numerous gallstones. There is no MRI evidence of acute chol ecystitis. The common bile duct measures up to 8 mm in diameter. No intraluminal filling defects are seen to suggest choledocholithiasis. The pancreatic duct is normal in caliber. There is no intrahepat ic biliary ductal dilatation. The unenhanced liver, spleen, and adrenal glands are grossly unremarkab le. The pancreas is edematous with peripancreatic inflammation and fluid. This is consistent with acu te pancreatitis. There is trace upper abdominal ascites. The kidneys demonstrate cortical atrophy and are without hydronephrosis. The abdominal aorta is normal in course and caliber. Imaged portions of the bowel show no evidence of obstruction. Dependent atelectasis is seen at the lung bases. There is no evidence of destructive bone lesion. IMPRESSION: 1. Cholelithiasis without MRI evidence of acute cholecystitis. 2. There is no intrahepatic biliary ductal dilatation, and no convincing evidence of choledocholithia sis. 3. Acute pancreatitis. 4. Trace upper abdominal ascites. Dictated: 03/18/2024 12:59 PM Transcribed: 03/18/2024 1:16 PM Efrain [id number] [email or web address] Electronically signed by: Arslan Matta M.D. 03/18/2024 1:37 PM
[2024-03-18] MEDS ORDERED: CARBOHYDRATES FOR HYPOGLYCEMIA PO PRN (15:25)
[2024-03-18] MEDS ORDERED: DEXTROSE 50% 50 ML SYRINGE IV PRN (15:25)
[2024-03-18] MEDS ORDERED: GLUCOSE 40% GEL 15 GM TUBE PO PRN (15:25)
[2024-03-18] MEDS ORDERED: GLUCAGON FOR INJ 1 MG VIAL SQ PRN (15:25)
[2024-03-18] MEDS ORDERED: GLUCOSE 10 TAB/TUBE PO PRN (15:25)
[2024-03-18] MEDS: allopurinoL 300 MG TAB PO SCH (16:43)
[2024-03-18] MEDS: hydroCHLOROthiazide 25 MG TAB PO SCH (16:44)
[2024-03-18] MEDS: EZETIMIBE 10 MG TAB PO SCH (16:44)
[2024-03-18] MEDS: ROSUVASTATIN CALCIUM 20 MG TAB PO SCH (16:44)
[2024-03-18] MEDS: FOLIC ACID 1 MG TAB PO SCH (16:44)
[2024-03-18] MEDS: CLOPIDOGREL BISULFATE 75 MG TAB PO SCH (16:45)
[2024-03-18] MEDS: lisinopril 10 MG TAB PO SCH (16:45)
[2024-03-18] MEDS: GABAPENTIN 600 MG TAB PO SCH (16:45)
[2024-03-18] MEDS: ASPIRIN 81 MG ECTAB PO SCH (16:45)
[2024-03-18] MEDS: HYDROmorphone INJ 1 MG/ML SYRINGE IV PRN (16:51)
[2024-03-18] MEDS: ONDANSETRON INJ 2 MG/ML 2 ML VIAL IV PRN (16:51)
[2024-03-18] MEDS: INSULIN ASPART PER UNIT CHARGE SC SCH (17:38)
[2024-03-18] MEDS: METOPROLOL TARTRATE 25 MG TAB PO SCH (20:36)
[2024-03-18] MEDS: PANTOprazole 40 MG TAB PO SCH (20:36)
[2024-03-19 07:06] LABS: Basophils # (auto) 0.03 K/uL (0.00-0.20); Basophils % (auto) 0.2 %; Eosinophils # (auto) 0.12 K/uL (0.00-0.50); Eosinophils % (auto) 0.8 %; Hemoglobin 15.3 g/dl (14.0-18.0); Immature Granulocytes # (auto) 0.09 K/uL (0.01-0.20); Immature Granulocytes % (auto) 0.6 %; Lymphocytes # (auto) 1.01 K/uL (1.20-3.40); Lymphocytes % (auto) 6.8 %; Mean Corpuscular Hemoglobin 31.2 pg (25.0-34.0); Mean Corpuscular Hgb Conc 34.8 g/dL (32.0-36.0); Mean Corpuscular Volume 89.8 fL (80.0-100.0); Mean Platelet Volume 9.5 fL (9.4-12.4); Monocytes % (auto) 6.7 %; Neutrophils # (auto) 12.57 K/uL (1.40-6.50); Neutrophils % (auto) 84.9 %; Platelet Count 145 K/uL (130-400); RDW Coefficient of Variation 13.5 % (11.5-14.5); RDW Standard Deviation 44.1 fL (36.4-46.3); White Blood Count 14.82 K/ul (4.8-10.8)
[2024-03-19 07:21] LABS: Albumin Globulin Ratio 1.3 (0.9-2); Albumin Level 3.3 gm/dl (3.4-5.0); BUN Creatinine Ratio 10.7 (10-20); Bilirubin,Total 1.2 mg/dl (0.2-1.0); Calcium 7.6 mg/dl (8.6-10.3); Creatinine Clr Calc Pharmacy 117.5 ml/min; Est GFR (African American) 109.5 ml/min; Est GFR (Non-African American) 94.5 ml/min; Globulin 2.6 gm/dl (2.5-4.0); Magnesium 1.5 mg/dl (1.7-2.4); Potassium 3.4 mmol/L (3.5-5.1); Total Protein 5.9 gm/dl (6.0-8.3)
[2024-03-19] MEDS: NSS + 20MEQ KCL 20 MEQ/1,000 ML BAG IV SCH (08:57)
[2024-03-19] MEDS: ROSUVASTATIN CALCIUM 10 MG TAB PO SCH (09:20)
--- NOTE | 2024-03-19 16:07 | Hospitalist Progress Note ---
Date of Service March 19, 2024 Assessment & Plan (1) Acute pancreatitis: Plan: Continue n.p.o. status and IV fluids. Parenteral pain control measures and antiemetics as needed. Serial labs. (2) Diabetes: Plan: Last A1c at 7.8% on 01/05/2024. Sliding scale coverage for now. Oral medications are on hold. (3) Elevated liver transaminase level: Plan: LFTs are downtrending. Treat underlying pancreatitis. Serial labs. MRCP results noted (4) CAD (coronary artery disease): Plan: S/p coronary artery stent. Stable. Continue aspirin/Plavix (5) GERD (gastroesophageal reflux disease): Plan: Stable. Continue PPI therapy (6) Hypertension: Plan: Stable. Continue metoprolol and lisinopril. Hydrochlorothiazide is on hold (7) Hyperlipidemia: Plan: Stable. Continue statin therapy (8) S/P coronary artery stent placement: Plan: Stable. Continue current medical management Plan Hopefully home later this week Admission and Anticipated Discharge Date Admission Date: March 18, 2024 Subjective Alert and oriented. No distress. is at the bedside. LFTs are trending down. Potassium has dropped to 3.4. IV replacement underway. MRCP reveals evidence of cholelithiasis without acute cholecystitis. He is currently n.p.o. with IV fluids. Review of Systems 2 Review of Systems: Constitutional-no fever or chills ENT-no blurred vision, no double vision, no epistaxis, no sore throat Respiratory-no cough, no wheezing, no shortness of breath Cardiac-no palpitations, no chest pain, no syncope GI-intermittent nausea. No vomiting. Anorexic. No diarrhea, melena, hematochezia -no urinary retention, no urinary incontinence, no dysuria, no hematuria Musculoskeletal-no joint pain, no muscle tenderness Skin-no bruising, no rashes, no pruritus Neuro-no isolated weakness, no paresthesia Psych-no depression, no anxiety Physical Exam 2 Physical Exam: General-alert and oriented x3, no fever, no chills HEENT-head atraumatic and normocephalic, pupils equal and reactive to light, extraocular muscles intact Neck-no lymphadenopathy or thyromegaly, trachea midline Chest-clear to auscultation. No rales, wheezing or rhonchi Cardiac-regular rate and rhythm, normal S1 and S2 Abdomen-normal bowel sounds, no hepatosplenomegaly. Mildly distended. Mild epigastric tenderness. No masses. No rebound or guarding Extremities-no cyanosis, clubbing, or edema Neuro-cranial nerves II through XII intact, motor and sensory function within normal limits, strength symmetrical, no focal deficits Psych-normal affect, normal mood Results & Data Results & Data Vital Signs (Past 12 Hours) Vital Signs Temp Pulse Pulse Resp BP Pulse Ox O2 Del Method 03/19/24 15:38 38.1 C H 92 H 18 108/71 92 Room Air 03/19/24 15:00 93 H 03/19/24 11:33 37.2 C 87 18 134/81 91 Room Air 03/19/24 08:00 Room Air 03/19/24 07:45 37.7 C H 89 18 134/81 92 Room Air 03/19/24 07:00 97 H Laboratory Results 03/19/24 06:40 03/19/24 06:40 PG Care Time/CCT Total # of Minutes Spent Total Time Spent with Patient: Total time spent is greater than 50% in coordination of care (as documented) at patient's floor/unit and/or counseling patient: Coding Level of Care Code 63480 SUB INP/OBS CARE 3/50MIN Diagnoses Acute pancreatitis K85.90 Acute pancreatitis complication: unspecified Pancreatitis type: unspecified pancreatitis type Diabetes E11.9 Elevated liver transaminase level R74.01 CAD (coronary artery disease) I25.10 GERD (gastroesophageal reflux disease) K21.9 Hypertension I10 Hyperlipidemia E78.5 S/P coronary artery stent placement Z95.5 (1) Acute pancreatitis Acute pancreatitis complication: unspecified Pancreatitis type: unspecified pancreatitis type Qualified Code(s): K85.90 - Acute pancreatitis without necrosis or infection, unspecified
[2024-03-20 07:56] LABS: Basophils # (auto) 0.03 K/uL (0.00-0.20); Basophils % (auto) 0.2 %; Eosinophils # (auto) 0.16 K/uL (0.00-0.50); Eosinophils % (auto) 1.2 %; Hematocrit (blood only) 40.2 % (42.0-52.0); Hemoglobin 13.8 g/dl (14.0-18.0); Immature Granulocytes # (auto) 0.07 K/uL (0.01-0.20); Immature Granulocytes % (auto) 0.5 %; Lymphocytes # (auto) 0.97 K/uL (1.20-3.40); Lymphocytes % (auto) 7.6 %; Mean Corpuscular Hemoglobin 30.9 pg (25.0-34.0); Mean Corpuscular Hgb Conc 34.3 g/dL (32.0-36.0); Mean Corpuscular Volume 90.1 fL (80.0-100.0); Mean Platelet Volume 9.5 fL (9.4-12.4); Monocytes # (auto) 0.86 K/uL (0.11-0.59); Monocytes % (auto) 6.7 %; Neutrophils # (auto) 10.74 K/uL (1.40-6.50); Neutrophils % (auto) 83.8 %; Platelet Count 139 K/uL (130-400); RDW Coefficient of Variation 12.8 % (11.5-14.5); Red Blood Count 4.46 M/uL (4.70-6.10); White Blood Count 12.83 K/ul (4.8-10.8)
[2024-03-20 08:11] LABS: Estimated Average Glucose 160 mg/dl; Hemoglobin A1C 7.2 % (4.5-5.6)
[2024-03-20 08:11] LABS: Albumin Globulin Ratio 1.1 (0.9-2); Albumin Level 3.1 gm/dl (3.4-5.0); BUN Creatinine Ratio 10.3 (10-20); Bilirubin,Total 1.3 mg/dl (0.2-1.0); Calcium 7.5 mg/dl (8.6-10.3); Creatinine Clr Calc Pharmacy 102.2 ml/min; Est GFR (African American) 97.3 ml/min; Est GFR (Non-African American) 83.9 ml/min; Globulin 2.9 gm/dl (2.5-4.0); Potassium 3.4 mmol/L (3.5-5.1)
[2024-03-20] MEDS: POTASSIUM CHLORIDE 10 MEQ TABCR PO SCH (10:26)
--- NOTE | 2024-03-20 12:48 | Hospitalist Progress Note ---
Date of Service March 20, 2024 Assessment & Plan (1) Acute pancreatitis: Plan: Improving. Lipase has now normalized. He has been started on a clear liquid diet which will be advanced as tolerated. IV fluids have been tapered down. Serial labs. (2) Diabetes: Plan: Controlled. Last A1c at 7.8% on 01/05/2024. Sliding scale coverage for now. Oral medications are on hold. (3) Elevated liver transaminase level: Plan: LFTs are downtrending. Continue treating underlying pancreatitis. Serial labs. MRCP results noted. He needs further outpatient gallbladder assessment including HIDA scanning (4) CAD (coronary artery disease): Plan: S/p coronary artery stent. Stable. Continue aspirin/Plavix (5) GERD (gastroesophageal reflux disease): Plan: Stable. Continue PPI therapy (6) Hypertension: Plan: Stable. Continue metoprolol and lisinopril. Hydrochlorothiazide is on hold (7) Hyperlipidemia: Plan: Stable. Continue statin therapy (8) S/P coronary artery stent placement: Plan: Stable. Continue current medical management Plan Hopefully home tomorrow, March 21 Admission and Anticipated Discharge Date Admission Date: March 18, 2024 Subjective Improved. Lipase has normalized. He has been started on clear liquids which will be advanced as tolerated. IV fluids taper down. He is now on oral potassium. Glucose 120 this morning. Hydrochlorothiazide has been discontinued. Hopefully he can go home tomorrow, March 21 Review of Systems 2 Review of Systems: Constitutional-no fever or chills ENT-no blurred vision, no double vision, no epistaxis, no sore throat Respiratory-no cough, no wheezing, no shortness of breath Cardiac-no palpitations, no chest pain, no syncope GI-intermittent nausea. No vomiting. Anorexic. No diarrhea, melena, hematochezia -no urinary retention, no urinary incontinence, no dysuria, no hematuria Musculoskeletal-no joint pain, no muscle tenderness Skin-no bruising, no rashes, no pruritus Neuro-no isolated weakness, no paresthesia Psych-no depression, no anxiety Physical Exam 2 Physical Exam: General-alert and oriented x3, no fever, no chills HEENT-head atraumatic and normocephalic, pupils equal and reactive to light, extraocular muscles intact Neck-no lymphadenopathy or thyromegaly, trachea midline Chest-clear to auscultation. No rales, wheezing or rhonchi Cardiac-regular rate and rhythm, normal S1 and S2 Abdomen-normal bowel sounds, no hepatosplenomegaly. Mildly distended. Mild epigastric tenderness. No masses. No rebound or guarding Extremities-no cyanosis, clubbing, or edema Neuro-cranial nerves II through XII intact, motor and sensory function within normal limits, strength symmetrical, no focal deficits Psych-normal affect, normal mood Results & Data Results & Data Vital Signs (Past 12 Hours) Vital Signs Temp Pulse Pulse Resp BP Pulse Ox O2 Del Method 03/20/24 12:39 89 03/20/24 11:43 37.1 C 87 18 123/73 95 Room Air 03/20/24 07:44 37.2 C 96 H 18 134/87 92 Room Air 03/20/24 03:46 82 03/20/24 03:27 37.9 C H 92 H 16 121/71 92 Room Air Laboratory Results 03/20/24 07:30 03/20/24 07:30 PG Care Time/CCT Total # of Minutes Spent Total Time Spent with Patient: Total time spent is greater than 50% in coordination of care (as documented) at patient's floor/unit and/or counseling patient: Coding Level of Care Code 45565 SUB INP/OBS CARE 3/50MIN Diagnoses Acute pancreatitis K85.90 Acute pancreatitis complication: unspecified Pancreatitis type: unspecified pancreatitis type Diabetes E11.9 Elevated liver transaminase level R74.01 CAD (coronary artery disease) I25.10 GERD (gastroesophageal reflux disease) K21.9 Hypertension I10 Hyperlipidemia E78.5 S/P coronary artery stent placement Z95.5 (1) Acute pancreatitis Acute pancreatitis complication: unspecified Pancreatitis type: unspecified pancreatitis type Qualified Code(s): K85.90 - Acute pancreatitis without necrosis or infection, unspecified
[2024-03-21 06:20] LABS: Basophils # (auto) 0.02 K/uL (0.00-0.20); Basophils % (auto) 0.2 %; Eosinophils # (auto) 0.11 K/uL (0.00-0.50); Hematocrit (blood only) 40.2 % (42.0-52.0); Immature Granulocytes # (auto) 0.05 K/uL (0.01-0.20); Immature Granulocytes % (auto) 0.4 %; Lymphocytes # (auto) 0.78 K/uL (1.20-3.40); Lymphocytes % (auto) 6.9 %; Mean Corpuscular Hemoglobin 31.4 pg (25.0-34.0); Mean Corpuscular Hgb Conc 34.8 g/dL (32.0-36.0); Mean Corpuscular Volume 90.1 fL (80.0-100.0); Mean Platelet Volume 9.4 fL (9.4-12.4); Monocytes # (auto) 0.71 K/uL (0.11-0.59); Monocytes % (auto) 6.3 %; Neutrophils # (auto) 9.68 K/uL (1.40-6.50); Neutrophils % (auto) 85.2 %; Platelet Count 150 K/uL (130-400); RDW Coefficient of Variation 12.9 % (11.5-14.5); RDW Standard Deviation 42.4 fL (36.4-46.3); Red Blood Count 4.46 M/uL (4.70-6.10); White Blood Count 11.35 K/ul (4.8-10.8)
[2024-03-21 06:32] LABS: Albumin Level 3.2 gm/dl (3.4-5.0); BUN Creatinine Ratio 8.1 (10-20); Bilirubin,Total 0.9 mg/dl (0.2-1.0); Calcium 8.2 mg/dl (8.6-10.3); Creatinine Clr Calc Pharmacy 115.5 ml/min; Est GFR (African American) 108.5 ml/min; Est GFR (Non-African American) 93.6 ml/min; Globulin 3.1 gm/dl (2.5-4.0); Potassium 3.9 mmol/L (3.5-5.1); Total Protein 6.3 gm/dl (6.0-8.3)
[2024-03-21] MEDS: ROSUVASTATIN CALCIUM 20 MG TAB PO SCH (08:42)
[2024-03-21] MEDS: POLYETHYLENE (MIRALAX) 17 GM PACK PO SCH (11:25)
--- NOTE | 2024-03-21 12:15 | Discharge Summary ---
Date of Service March 21, 2024 Admission HPI Per Admitting Provider Kannan is a 63-year-old male with PMH of gout, CAD s/p stent placement, HTN, HLD, GERD, AL, and diabetic neuropathy. He presented for acute onset of generalized abdominal and chest pain on the evening of 03/17. He also reports 2 episodes of vomiting last night. Pain is located generalized throughout the upper and lower the abdomen, with radiation to the lower back. He describes as a sharp stabbing pain in his stomach. Exacerbated with movements. The pain came on suddenly around 6 PM the evening of 03/17. He rates the pain 8/10 after receiving pain medicine in the ED. He was not doing anything when the pain came on; did not eat anything the night prior. He did not taken any pain medications at home prior to coming in. No morning medications; no recent change in medicine except for switching from metformin to Rybelsus. He also notes intermittent chest pain last night with movements and at rest. He is chest pain-free at time of admission. No recent change in diet. No history of pancreatitis. He does note a history of gallstones, which she reports were seen on the CT 1 year ago. No prior issues with his gallbladder. He has had past similar episodes of generalized abdominal pain with radiation to the back, but never to this extent. Patient does drink alcohol; 6 beers per week; however he reports he has been cutting back recently. He denies history of heavy alcohol use in his past. Last alcoholic drink was 1 beer on the evening of 03/17. Patient is a former tobacco snuff chewer, but quit 7 years ago after his AL. He denies any recent tobacco use, or recreational drug use. No sick contacts. Patient is mildly hypertensive at 155/98 at time of admission; vitals otherwise stable. ED course: NSS 1000 mL IV Zofran 4 mg IV Morphine sulfate 4 mg IV ROS: Patient endorses deep breaths hurt stomach, sharp/generalized abdominal pain with rad to lower back, nausea, or vomiting x 2 last night. Patient denies fever, chills, night-sweats, dizziness, lightheadedness/dizziness, EDWARDS, chest pain, chest palpitations, SOB, cough, hemoptysis, diarrhea, change in urinary/bowel habits, blood in urine/stool, dysuria, or numbness/tingling in the arms or legs. Principal Diagnosis Acute pancreatitis, cholelithiasis, transaminitis, hypokalemia Discharge Exam General-alert and oriented x3, no fever, no chills HEENT-head atraumatic and normocephalic, pupils equal and reactive to light, extraocular muscles intact Neck-no lymphadenopathy or thyromegaly, trachea midline Chest-clear to auscultation. No rales, wheezing or rhonchi Cardiac-regular rate and rhythm, normal S1 and S2 Abdomen-normal bowel sounds, no hepatosplenomegaly. Mildly distended. Mild epigastric tenderness. No masses. No rebound or guarding Extremities-no cyanosis, clubbing, or edema Neuro-cranial nerves II through XII intact, motor and sensory function within normal limits, strength symmetrical, no focal deficits Psych-normal affect, normal mood Discharge Data Allergies Allergy/AdvReac Type Severity Reaction Status Date / Time No Known Allergies Allergy Verified 02/04/24 15:35 Consultations 03/18/24 11:13 ED Decision to Admit Stat Ordered Studies 03/18/24 08:04 CT abd pelvis IV con only Stat 03/18/24 09:30 CT angio chest PE protocol Stat 03/18/24 11:28 MRI MRCP [MR MRCP] Stat Hospital Course (1) Acute pancreatitis: Resolved. Lipase has now normalized. Diet has been advanced and so far it is well-tolerated. He is concerned about recurrent pain and a short term prescription for as needed Vicodin will be provided. He understands he needs to have his gallbladder evaluated as an outpatient by his PCP. (2) Diabetes: Controlled. Last A1c at 7.8% on 01/05/2024. Sliding scale coverage for now. Oral medications were held while hospitalized and can be restarted at discharge (3) Elevated liver transaminase level: LFTs are downtrending. He understands he needs to have his gallbladder evaluated as an outpatient. MRCP results noted. (4) CAD (coronary artery disease): S/p coronary artery stent. Stable. Continue aspirin/Plavix (5) GERD (gastroesophageal reflux disease): Stable. Continue PPI therapy (6) Hypertension: Stable. Continue metoprolol and lisinopril. Hydrochlorothiazide will be discontinued indefinitely because this has been shown to possibly cause pancreatitis (7) Hyperlipidemia: Stable. Continue statin therapy (8) S/P coronary artery stent placement: Stable. Continue current medical management Plan Home today, March 21 Total Time Total Time Spent Total Time Spent (In Minutes): 45-minute Discharge Plan Discharge Items Patient Disposition: Home - Self-Care Reason For Visit: GENERAKIZED ABDOMINAL PAIN, VOMITING Discharge Diagnosis: Acute pancreatitis, cholelithiasis, transaminitis, hypokalemia Activity: Resume your previous activity Non-emergency contact: Primary Care Provider Call non-emergency contact if: your symptoms worsen Follow-up/Referrals: Linda Rojas PA-C [Primary Care Provider] - Diet: Carb Consistent or DM2 and Low Fat Addtl Attending Provider Instructions: Hydrochlorothiazide has been discontinued. Take Lipan as needed for any recurrent abdominal pain. Primary care provider will schedule outpatient gallbladder evaluation Pending Studies at Discharge: No Stand-Alone Forms: [employer], Smoking Cessation Medications and DC Order Prescriptions: New hydrocodone-acetaminophen 5-325 mg tablet 1 tab PO Q6H PRN (Reason: pain) Qty: 20 0RF Continued ezetimibe [Zetia] 10 mg tablet 10 mg PO DAILY Qty: 90 11RF rosuvastatin [Crestor] 40 mg tablet 40 mg PO DAILY Qty: 90 3RF clopidogrel [Plavix] 75 mg tablet 75 mg PO DAILY Qty: 90 3RF Jardiance 10 mg tablet 10 mg PO DAILY omega-3 fatty acids [Fish Oil Concentrate] 1,000 mg capsule 1,000 mg PO DAILY mecobalamin (vitamin B12) 1,000 mcg tablet,chewable 1,000 mcg PO DAILY cholecalciferol (vitamin D3) 50 mcg (2,000 unit) capsule 50 mcg PO DAILY aspirin [Adult Low Dose Aspirin] 81 mg tablet,delayed release (DR/EC) 81 mg PO DAILY nitroglycerin 0.4 mg tablet, sublingual 0.4 mg sublingual Q5M PRN (Reason: Chest Pain) Rx Instructions: do not exceed 3 doses per episode metoprolol tartrate 25 mg tablet 25 mg PO BID lisinopril 10 mg tablet 10 mg PO BID omeprazole 20 mg capsule,delayed release(DR/EC) 20 mg PO BID indomethacin 50 mg capsule 50 mg PO .COMPLEX PRN (Reason: Other) Rx Instructions: 50 mg PO Q6-8hrs PRN; administer with food or milk allopurinol 300 mg tablet 300 mg PO DAILY methotrexate sodium 2.5 mg tablet 17.5 mg PO .weekly Rx Instructions: sundays gabapentin 600 mg tablet 600 mg PO .COMPLEX Rx Instructions: 2 tablets in the am 2 tablets in the pm prednisone 1 mg tablet 4 mg PO DAILY PRN (Reason: Other) folic acid 1 mg tablet 1 mg PO DAILY Rybelsus 3 mg tablet 3 mg PO DAILY Discontinued hydrochlorothiazide 25 mg tablet 25 mg PO DAILY Discharge Orders: Discharge Order (Routine); Ordered 03/21/24 Ordered By: Keven Boland/Other Patient Handouts: Managing Type 2 Diabetes, Special Foot Care for Diabetes Admission Data Admit Date/Time: 03/18/24 13:44 Attending Provider: Keven Mota Admit Provider: Gerry Schwartz Primary Care Provider: Linda Rojas Providers: Gerry Schwartz Coding Level of Care Code 49514 INP/OBS DISCH >30 MIN Diagnoses Acute pancreatitis K85.90 Acute pancreatitis complication: unspecified Pancreatitis type: unspecified pancreatitis type Diabetes E11.9 Elevated liver transaminase level R74.01 CAD (coronary artery disease) I25.10 GERD (gastroesophageal reflux disease) K21.9 Hypertension I10 Hyperlipidemia E78.5 S/P coronary artery stent placement Z95.5
--- NOTE | 2024-03-22 19:23 | Coding Query ---
CODING QUERY To promote full compliance with coding requirements relating to patient care, provider participation is requested in all cases of commercial lender uncertainty. Please assist us with the question(s) below: Coding Question(s): Sodium-133---132 Potassium-3.4 03/19 PN- Potassium has dropped to 3.4. IV replacement underway Can you please clarify in your progress notes any pertinent diagnosis that are clinically significant of the above lab findings? Physician's Response(s): Please select any that may apply: [ ] Hyponatremia [ x ] Hypokalemia [ ] Labs not clinically significant [ ] Other [ ] Unable to determine Thank you Leanna Figueroa, ANAP, CCS Principal Diagnosis: "that condition established after study, to be chiefly responsible for occasioning the admission of the patient to the hospital for care." Co-Existing Principal Diagnosis: "when two or more diagnoses equally meet the criteria for principal diagnosis as determined by the circumstances of admission, diagnostic work up, and/or therapy provided, and the Alphabetic Index, Tabular List, or another coding guideline does not provide sequencing direction, any one of the diagnoses may be sequenced first." "When the physician has documented what appears to be a current diagnosis in the body of the record, but has not included the diagnosis in the final diagnostic statement, the physician should be asked whether the diagnosis should be added." (Source [facility]oding [facility] 2 QTR90. p3-4) [facility]
== END 2024-03-21 13:45 | disposition home or self-care (01) | DRG 440 ==
LOC: ED 07:40 → SUATTDRO 13:44 → EDINP 13:44 → 2N 15:26